=== PATIENT | female | born 1940 | race Caucasian/White ===

== ENCOUNTER 2017-05-19 15:30 | Emergency (ER) | payer MEDICARE, BC ==
[~2017-05-19 15:30] MED LIST: ARICEPT10 PO; ASAB PO; CONSTULOSE PO; CRESTOR20 MG PO; DCN100 PO; ECOTRIN81 MG PO; EXELON4.6T TOP; FISH-EPA1000 MG PO; FLEX PO; KAPIDEX30 MG PO; KLONO1 PO; LOP25 PO; LORTAB 5 PO; MAGNEBIND200 MG PO; MULTIPLE VIT PO; NEUR100 PO; NORCO1 TA2 PO; OS500+D PO; OTC STOOL SOFTENER PO; PERI-COLACE1 TAB PO; PRIN10 PO; PRIN2.5 PO; PRIN5 PO; RECLAST IV; TRIAMCINOLONE C80 GM TOP; VICODINTAB PO; VITAMIN D31000 UNIT PO; ZANAFLEX 4 MG TA4 MG PO; ZANTAC 150 PO; [UNRECOGNIZED DRUG - OTHER] PO
[2017-05-19 16:08] LABS: BASOPHILS 0.3 %; BASOPHILS ABSOLUTE 0.02 10/3/uL (0.0-0.16); EOSINOPHILS 1.6 %; EOSINOPHILS ABSOLUTE 0.12 10/3/uL (0.0-0.53); ER CBC TAT 0 Hrs 05 Mins; HEMATOCRIT 39.8 % (36.0-48.0); HEMOGLOBIN 13.5 g/dL (12.0-16.0); IMMATURE GRANULOCYTES 0.1 %; IMMATURE GRANULOCYTES ABSOLUTE 0.01 10/3/uL (0.0-0.11); LYMPHOCYTES 54.2 %; LYMPHOCYTES ABSOLUTE 4.17 10/3/uL (0.67-4.30); MEAN CORPUS HGB CONC 33.9 g/dL (32.0-36.0); MEAN CORPUSCULAR HEMOGLOB 31.5 pg (26.0-34.0); MEAN PLATELET VOLUME 10.2 fL (9.2-13.0); MONOCYTES 8.1 %; MONOCYTES ABSOLUTE 0.62 10/3/uL (0.21-1.20); NEUTROPHILS 35.7 %; NEUTROPHILS ABSOLUTE 2.75 10/3/uL (2.02-8.40); PLATELET COUNT 272 10/3/uL (150-400); RBC DISTRIBUTION WIDTH 12.9 % (12.0-16.0); RED CELL COUNT 4.28 10/6/uL (4.0-5.6); WHITE BLOOD CELLS 7.7 10/3/uL (4.5-10.5)
[2017-05-19 16:09] LABS: MANUAL DIFF NO %
[2017-05-19 16:14] LABS: PARTIAL THROMBO TIME 27.3 SEC (22.5-37.2); PROTIME (NOT ORD) 13.3 SEC (12.0-14.5)
[2017-05-19 16:25] LABS: BUN (BLOOD UREA NITROGEN) 22 MG/DL (6-23); CALCIUM, SERUM 9.5 MG/DL (8.5-10.4); CHEST PAIN PROFILE TAT 0 Hrs 22 Mins; CHLORIDE, SERUM 108 MMOL/L (96-112); CO2 (CARBON DIOXIDE) 25 MMOL/L (24-34); CREATININE 0.98 MG/DL (0.55-1.02); GFR AFRICAN AMERICAN 64 ML/MIN (>=60); GFR NON AFRICAN AMERICAN 56 ML/MIN (>=60); GLUCOSE, SERUM 93 MG/DL (60-99); SODIUM, SERUM 142 MMOL/L (135-148); TROPONIN I <0.02 NG/ML (<0.05)
[2017-05-19 16:56] LABS: ALBUMIN 3.9 G/DL (3.5-5.0); ALKALINE PHOSPHATASE 72 U/L (45-117); CPK 72 U/L (0-200); DIRECT BILIRUBIN 0.1 MG/DL (0.0-0.4); SGPT(ALT) 16 U/L (5-65); TOTAL PROTEIN 7.4 G/DL (6.0-8.5)
[2017-05-19 16:58] LABS: INDIRECT BILIRUBIN(NOT ORDER) 0.9 MG/DL (0.1-0.9)
[2017-05-19 16:59] LABS: SGOT(AST) 24 U/L (5-40)
[2017-05-19 18:06] LABS: ASCORBIC ACID (UR NOT ORDER) NEG (NEG); BILIRUBIN, URINE NEGATIVE (NEG); KETONE, URINE NEGATIVE (NEG); LEUKOCYTE ESTERASE(NOT OR TRACE (NEG); NITRITE (URINE) NEG (NEG); WBC (NOT ORDERED) (RFLEX) 10 (0-5)
[2017-05-19 18:07] LABS: ER URINALYSIS TAT 0 Hrs 33 Mins
== END 2017-05-19 20:22 | disposition home or self-care (01) ==
LOC: ER 15:30
PROVIDERS: Emergency Medicine
DX: R07.9 Chest pain, unspecified (principal); M79.1 Myalgia; R00.2 Palpitations; I10 Essential (primary) hypertension; I25.2 Old myocardial infarction; F03.90 Unspecified dementia, unspecified severity, without behavioral disturbance, psychotic disturbance, mood disturbance, and anxiety; D64.9 Anemia, unspecified; Z86.73 Personal history of transient ischemic attack (TIA), and cerebral infarction without residual deficits; Z88.0 Allergy status to penicillin; Z88.8 Allergy status to other drugs, medicaments and biological substances; Z79.899 Other long term (current) drug therapy
CPT/HCPCS: 71010; 74176; 80048; 80076; 81001; 82550; 83690; 83735; 84484; 85025; 85610; 85730; 93005; 96374; 96375; 99285; A9270-GY; J2405